=== PATIENT | female | born 1990 | race Caucasian/White ===

== ENCOUNTER 2023-04-23 22:46 | Emergency (ER) | payer OTHER ==
--- NOTE | 2023-04-23 23:01 | ED Physician Documentation ---
PD HPI BACK PAIN - Stated complaint Stated Complaint: BACK PX - Chief complaint Chief Complaint: Back Pain - History obtained from History obtained from: Patient - Additional information Additional information: HPI from patient. Patient complains of a few weeks of episodic abdominal pain, originates in the epigastric region and radiates around both flanks to her upper lumbar/lower thoracic back. The pain has been associate with nausea but no vomiting. There are are no inciting, exacerbating, nor ameliorating factors. She is not been evaluated for the symptoms until tonight. The episode she is currently experiencing started a few hours prior to arrival, and is most severe and persistent episode she has had thus far. Review of Systems Constitutional: denies: Fever, Chills, Sweats Cardiac: reports: Reviewed and negative Respiratory: reports: Reviewed and negative GI: reports: Abdominal Pain, Nausea. 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 : None HEENT: None Psych: None Musculoskeletal: None Derm: None - Past Surgical History Past Surgical History: No - Present Medications Home Medications: Ambulatory Orders Medication Instructions Recorded Confirmed metFORMIN [Glucophage] 500 mg PO DAILY 04/23/23 Ondansetron Odt [Zofran] 4 mg TL Q6H PRN #14 tablet 04/24/23 Oxycodone HCl/Acetaminophen 1 - 2 each PO Q6H PRN #14 tablet 04/24/23 [Percocet 5-325 mg Tablet] - Allergies Allergies/Adverse Reactions: Allergies Allergy/AdvReac Type Severity Reaction Status Date / Time acetaminophen [From Vicodin] AdvReac Nausea Verified 04/23/23 22:56 hydrocodone [From Vicodin] AdvReac Nausea Verified 04/23/23 22:56 - Social History Does the pt smoke?: No Smoking Status: Never smoker Does the pt drink ETOH?: Yes Does the pt have substance abuse?: No - Immunizations Immunizations are current?: No - POLST Patient has POLST: No PD ED PE NORMAL - Vitals Vital signs reviewed: Yes - General General: Alert and oriented X 3, Well developed/nourished, Other (Patient appears to be in moderate to severe painful distress.) - Neck Neck: Supple, no meningeal sign - Cardiac Cardiac: RRR, No murmur - Respiratory Respiratory: No respiratory distress, Clear bilaterally - Abdomen Abdomen: Soft, Non distended, Other (Mild to moderate tenderness palpation right upper quadrant and epigastrium without rebound or guarding) - Back Back: No CVA TTP - Derm Derm: Normal color, Warm and dry Results - Vitals Vitals: Oxygen O2 Source Room air - Labs Labs: Laboratory Tests 04/23/23 04/23/23 23:58 23:58 WBC 11.5 H RBC 4.65 Hgb 13.0 Hct 41.0 MCV 88.2 MCH 28.0 MCHC 31.7 L RDW 13.3 Plt Count 261 MPV 9.5 Neut # (Auto) 6.3 Lymph # (Auto) 4.2 H Henry # (Auto) 0.7 Eos # (Auto) 0.2 Baso # (Auto) 0.1 Absolute Nucleated RBC 0.00 Nucleated RBC % 0.0 Sodium 136 Potassium 4.4 Chloride 105 Carbon Dioxide 24 Anion Gap 7.0 BUN 13 Creatinine 0.7 Estimated GFR (MDRD) 95 Glucose 112 H Calcium 8.8 Total Bilirubin 0.2 AST 17 ALT 20 Alkaline Phosphatase 58 Total Protein 6.2 L Albumin 3.7 Globulin 2.5 Albumin/Globulin Ratio 1.5 Lipase 31 - Rads (name of study) RUQ US Relevant Findings:: Prelim report reviewed, See rad report PD Medical Decision Making - ED course Complexity details: reviewed results, re-evaluated patient, considered differential, d/w patient ED course: No concerning findings on blood tests (mild leukocytosis, WBC 11.5). Normal LFTs and normal lipase. Right upper quadrant ultrasound is interpreted by radiologist as "impacted gallstone demonstrated in the gallbladder neck without gallbladder wall thickening or pericholecystic fluid to definitely suggest cholecystitis". Patient is given 30 mg Toradol IV, 1 mg of Dilaudid IV, and 4 mg Zofran IV. On reevaluation, she is sleeping, awakens to verbal stimulation. She reports excellent symptom relief with these medications. On repeat examination of the abdomen, she is nontender to palpation. Results reviewed with the patient. At this time, she is safe and appropriate for discharge home. Advised her to seek follow-up with a general surgeon. She is provided a take-home pack of Percocet as well as Zofran, and these medications are electronically submitted to her pharmacy of choice. Return precautions are reviewed prior to discharge. I am prescribing a short course of short-acting opioid pain medication for this patient. 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 I have discussed that the opioids are for short term therapy only, and will not be refilled from the ED. Departure - Departure Disposition: 01 Home, Self Care Clinical Impression: Biliary colic Condition: Good Instructions: ED Gallstone W Biliary Colic Follow-Up: Vladimir Eller MD [Provider Admit Priv/Credential] - Prescriptions: Oxycodone HCl/Acetaminophen [Percocet 5-325 mg Tablet] 1 - 2 each PO Q6H PRN #14 tablet PRN Reason: pain Ondansetron Odt [Zofran] 4 mg TL Q6H PRN #14 tablet PRN Reason: Nausea / Vomiting Comments: The ultrasound shows a large gallstone that is blocking the flow of bile from the gallbladder; this certainly would account for your symptoms. Follow-up with a general surgeon to discuss options for treatment. I have electronically submitted prescriptions for Percocet (narcotic/opiate pain medication) and ondansetron (antinausea medication) to the [facility] pharmacy in [place]. I am prescribing a short course of narcotic pain medication for you. These are potentially dangerous and addictive medications that should be used carefully. These medications may constipate you. Take an bnpj-rug-[id number] stool softener (docusate) twice daily with plenty of water while taking these medications. If you go 24 hours without a bowel movement, take [id number] miralax, per package instructions. Do not drink or drive while taking these medications. If you received narcotic or sedating medications while in the emergency department, do not drive for 24 hours. Store this medication in a safe, secure place and out of reach of children. It is a violation of federal law to give or sell this medication to another person or to use in a manner other than prescribed. The ED will not refill narcotic prescriptions, including prescriptions lost or stolen. To dispose of unwanted medications: 1. [facility] [address] in [place] has a medication drop box. They accept prescription medications (in pill form) Saturday through Saturday 9:00 a.m. to 5:00 p.m. 2. [facility] accepts prescription medications (in pill form only) for disposal year round. Call for more information. 3. Contact the [facility] for the next [facility] sponsored prescription drug collection event. , [phone], or [phone]; Forms: Activity restrictions Discharge Date/Time: 04/24/23 01:45
[2023-04-23] MEDS ORDERED: ONDANSETRON 4 MG/2 ML VIAL IVP STA (23:17)
[2023-04-23] MEDS ORDERED: HYDROmorphone 1 MG/ML CARPUJECT IVP STA (23:17)
[2023-04-23] MEDS ORDERED: KETOROLAC 30 MG/ML VIAL IVP STA (23:17)
[2023-04-23] MEDS ORDERED: SODIUM CHLORIDE 0.9% 1,000 ML IV STA (23:17)
[2023-04-24 00:05] LABS: BASOPHILS # (AUTO) 0.1 10^3/uL (0.0-0.1); BASOPHILS % (AUTO) 0.4 %; EOSINOPHILS # (AUTO) 0.2 10^3/uL (0.0-0.7); EOSINOPHILS % (AUTO) 2.1 %; LYMPHOCYTES # (AUTO) 4.2 10^3/uL (1.5-3.5); LYMPHOCYTES % (AUTO) 36.8 %; MEAN CORPUSCULAR HGB CONC 31.7 g/dL (32.0-36.0); MEAN CORPUSCULAR VOLUME 88.2 fL (81.0-99.0); MEAN PLATELET VOLUME 9.5 fL (7.9-10.8); MONOCYTES # (AUTO) 0.7 10^3/uL (0.0-1.0); MONOCYTES % (AUTO) 5.8 %; NEUTROPHILS # (AUTO) 6.3 10^3/uL (1.5-6.6); NEUTROPHILS % (AUTO) 54.6 %; PLT - PLATELET COUNT 261 10^3/uL (130-450); RED BLOOD COUNT 4.65 10^6/uL (4.20-5.40); RED CELL DISTRIBUTION WIDTH 13.3 % (12.0-15.0); WHITE BLOOD COUNT 11.5 x10^3/uL (4.8-10.8)
[2023-04-24 00:41] LABS: ALBUMIN 3.7 g/dL (3.2-5.5); ALBUMIN/GLOBULIN RATIO 1.5 (1.0-2.2); BILIRUBIN,TOTAL 0.2 mg/dL (0.2-1.0); CALCIUM 8.8 mg/dL (8.5-10.3); CREATININE 0.7 mg/dL (0.4-1.0); POTASSIUM 4.4 mmol/L (3.5-5.0); TOTAL PROTEIN 6.2 g/dL (6.7-8.2)
--- NOTE | 2023-04-24 00:57 | Ultrasound Report ---
PROCEDURE: Abdomen Limited INDICATIONS: abdominal pain TECHNIQUE: Real-time focused scanning was performed of the abdomen, with image documentation. COMPARISONS: None. FINDINGS: Liver: Liver is normal in size without focal hepatic lesions identified. Gallbladder: There is a gallstone measuring up to 2.5 cm which appears impacted in the gallbladder ne ck. No definite gallbladder wall thickening or pericholecystic fluid. Biliary ducts: No intrahepatic biliary ductal dilatation. The visualized common bile duct is mildly d ilated, measuring up to 0.8 cm. Pancreas: The visualized pancreas appears unremarkable sonographically. Right kidney: Right kidney measures 11 cm. No hydronephrosis. IMPRESSION: 1. Impacted gallstone demonstrated in the gallbladder neck without gallbladder wall thickening or per icholecystic fluid to definitely suggest cholecystitis. Recommend correlation clinically. Reviewed by: Jignesh Mir MD on 04/24/2023 12:55 AM PDT Approved by: Jignesh Mir MD on 04/24/2023 12:55 AM PDT Station ID: [id number]
[2023-04-24] MEDS ORDERED: ONDANSETRON ODT 4 MG Prepack 2 TL PRN (01:27)
[2023-04-24] MEDS ORDERED: oxyCODONE/ACET 5/325 Prepack 4 PO STA (01:27)
[2023-04-24 02:57] VITALS: BP 111/81
== END 2023-04-24 01:45 | disposition home or self-care (01) ==
LOC: EDBD → ED 22:46
DX: K80.50 Calculus of bile duct without cholangitis or cholecystitis without obstruction (principal); E11.9 Type 2 diabetes mellitus without complications; Z79.84 Long term (current) use of oral hypoglycemic drugs
CPT/HCPCS: 36415; 76705; 80053; 83690; 85025; 96374; 96375; 99284; J1170

== ENCOUNTER 2024-04-13 08:28 | Outpatient (CLI) | payer OTHER ==
--- NOTE | 2024-04-13 11:19 | XRAY Report ---
PROCEDURE: Calcaneus 2+V BL INDICATIONS: PAIN IN BILAT HEELS TECHNIQUE: Two views of the calcaneus were acquired. COMPARISON: None. FINDINGS: Bones: No fractures or dislocations. No suspicious bony lesions. Moderately prominent bilateral pl fredis calcaneal spurs. No erosive changes. Soft tissues: No suspicious calcifications. Achilles tendon appears normal. IMPRESSION: Prominent bilateral plantar calcaneal spurs. Reviewed by: Kaila Mccrary MD on 04/13/2024 11:18 AM PDT Approved by: Kaila Mccrary MD on 04/13/2024 11:18 AM PDT Station ID: [id number]
== END 2024-04-13 08:29 | disposition home or self-care (01) ==
LOC: DI.N 08:28
PROVIDERS: ATTEND Physician Assistant
DX: M77.32 Calcaneal spur, left foot (principal); M77.31 Calcaneal spur, right foot